=== PATIENT | female | born 1965 | race Caucasian/White ===

== ENCOUNTER → 2017-02-16 | Day surgery (SDC) | payer BC ==
--- NOTE | 2017-02-18 15:34 | PATH ---
Cytology Non-Gynecological Report Patient Name: VIK AHUMADA [facility]. Rec. #: [id number] /Age/Gender: 1965 (Age: 52) / F Account: [id number] Location: RADIOLOGY Taken: 02/16/2017 Received: 02/16/2017 Reported: 02/18/2017 Physicians: Wale Diaz M.D. Specimen(s) Received RIGHT THYROID FNA Clinical History Right thyroid nodule, 1 x 0.5 x 1.1 cm Final Diagnosis THYROID GLAND, RIGHT LOBE, US GUIDED FINE NEEDLE ASPIRATION BIOPSY: SATISFACTORY FOR EVALUATION. POSITIVE FOR MALIGNANT CELLS (BETHESDA CATEGORY ). FAVOR PAPILLARY THYROID CARCINOMA (SEE COMMENT). Comment: The smears and the cell block show clusters of enlarged epithelial cells with occasional nuclear grooves occasional nuclear pseudoinclusions, variable amount of cytoplasm with focal cytoplasmic vacuolization and granularity. Focal calcifications are seen. Scant colloid is present. Macrophages are present indicative of cystic change. These cytomorphologic findings favor papillary thyroid carcinoma. This result was communicated to Haleigh Ramirez, program assistant to Dr. Deras on 02/18/17. Electronically Signed Diego Sorensen M.D. Gross Description Received are four air dried smears, four smears in 95% alcohol, and 1 cc of bloody fluid in formalin. Four diff-quik stained slides, four Pap stained slides and one cell block are made.
== END | disposition home or self-care (01) ==
LOC: JRADIR 08:40
PROVIDERS: ATTEND Otolaryngology Facial Plastic Surgery
PROC: 0G9H3ZX Drainage of Right Thyroid Gland Lobe, Percutaneous Approach, Diagnostic (ICD-10-PCS; principal; 2017-02-16)
DX: C73 Malignant neoplasm of thyroid gland (principal)
CPT/HCPCS: 76942; 88173; 88305-TC

== ENCOUNTER 2019-06-02 16:16 | Emergency (ER) | payer BC ==
[2019-06-02 16:31] VITALS: BMI 23.1
[2019-06-02] MEDS ORDERED: ONDANSETRON 4 MG/2 ML VIAL IVPUSH ONE (16:45)
[2019-06-02] MEDS ORDERED: PANTOPRAZOLE SODIUM 40 MG VIAL IVPUSH ONE (17:07)
--- NOTE | 2019-06-02 17:07 | PDOC ---
History of Present Illness - General Chief Complaint: Coffee Ground Emesis Stated Complaint: Vomiting Blood Time Seen by Provider: 06/02/19 16:29 History Source: Patient, Old Records, Pt declined Sales Service Representative (Declined telephone interpeter. Prefered son to translate.) Exam Limitations: Language Barrier (Pt is Libyan speaking only.) - History of Present Illness Initial Comments: HPI: 54 y/o female with stage 4 gastric cancer presenting to [facility] ER complaining of multiple episodes of hematemesis. Pts son reports his mother stated she felt dizzy, then passed out for approx. 1 minute. After regaining consciousness, the pt then vomiting bright red blood with clots. An ambulance was called and the pt experienced several more episodes of hematemesis. At time of interview, the pt is complaining only of a little bit of pain around her J tube. No longer feels nauseated. Denies recent dark stools, bleeding from her gums, or hematuria. Pt was recently diagnosed with stage 4 gastric CA. Following at [place] for oncologic care. Last chemotherapy infusion on Tuesday of last week. PET scan performed two days later reportedly reassuring with shrinking tumors. PCP: Dr. Ted Borja ([phone]) Oncologist: Dr. Myranda Ortiz at [place] ([phone]) Medical Hx: - Stage 5 Gastric CA - Bipolar, Valproic Acid - Depression Surgical Hx: - J Tube Placement Review of Systems: In addition to that documented in the HPI above, the additional ROS was obtained : Constitutional- Denies fevers or chills Head- Denies vision changes ENMT- Denies sore throat CV- Denies chest pain Resp- Denies SOB GI- Endorses vomiting. Denies diarrhea - Denies painful urination or hematuria MSK- Denies recent trauma Skin- Denies new rashes Neuro- Denies new numbness or tingling or weakness Endocrine- Denies polyuria Heme- Denies bleeding or bruising Physical Examination: Vital signs and nursing notes reviewed. Constitutional- Adult female in no acute distress or obvious discomfort. Found semi-fowlers on hospital bed. Smiling. Head- Normocephalic. No obvious external signs of trauma. Conjunctiva pink and moist. Throat- Oral cavity and pharynx normal. No inflammation, swelling, exudate, or lesions. Trace amount of dried blood around lips. Oral mucosa pink and moist. Neck- Supple, trachea is midline. Cardiovascular / Chest- Regular rate and regular rhythm. No murmur, rubs, clicks , or gallops. Peripheral pulses- radial pulses full. No pretibial edema. Respiratory- Breathing unlabored. Speaking in complete sentences without pausing for breath. Equal chest rise and fall. Clear to auscultation bilaterally. No stridor, no wheezing, no rhonchi. Gastrointestinal- abdomen is soft, non-tender, non-distended. J tube in LUQ at 4.5cm. Site clean, dry, and well appearing. Neuro- Alert and oriented x4. Moving all four extremities spontaneously. Skin- [place], warm, dry, and intact. Psych- Affect- appropriate. Mood- normal. Speech was non-labored, non- pressured. MDM: 54 y/o female presenting with hematemesis and syncope in setting of stage 4 gastric cancer and active chemotherapy regimen. Afebrile. Vitals remarkable for tachycardia without hypotension. Physical exam as described above. Initial H/H within normal limits, however concern values have not equilibrated. Will trend at 4 hours. No significant thrombocytopenia or prolonged INR/PTT. Ordered Protonix bolus and drip, and Zofran. Pt requested Morphine as she is due for her scheduled oxycodone. Ordered 2mg Morphine. 02 Jun 2019 18:58 PM Telephone discussion with resident Dr. Jaret Contreras at [place]. Verbally appraised of the pts HPI, ED course, and current plan of management. 02 Jun 2019 18:42 PM [place] [facility] contacted. Facesheet and most recent laboratory results. Awaiting call back with further instructions. Pt remains persistently tachycardic. Now more pale appearing. Ordered 1 unit PRBC transfusion given description of volume loss. 02 Jun 2019 19:42 PM Telephone discussion with Dr. Powers, Adult ED Attending at [facility]. Verbally appraised of the pts HPI, ED course , and current plan of management. Will accept the pt for transfer for further evaluation by pt's oncologic team of record. Oncology fellow Dr. Contreras made aware of transfer center. [facility] will arrange ALS transport with [facility]. Paco Beasley M.D., PGY2 Emergency Medicine Resident Past History - Past Medical History Allergies/Adverse Reactions: Allergies Allergy/AdvReac Type Severity Reaction Status Date / Time No Known Allergies Allergy Verified 06/02/19 16:30 Home Medications: Ambulatory Orders NK [No Known Home Medication] 05/20/16 Cancer: Yes (STOMACH) COPD: No Psychiatric Problems: Yes (depression BIPOLAR) - Psycho Social/Smoking Cessation Hx Smoking History: Never smoked Have you smoked in the past 12 months: No Information on smoking cessation initiated: No Hx Alcohol Use: No Drug/Substance Use Hx: No *Physical Exam - Vital Signs Last Vital Signs Temp Pulse Resp BP Pulse Ox 98.5 F 113 H 20 107/86 100 06/02/19 16:25 06/02/19 16:25 06/02/19 16:25 06/02/19 16:25 06/02/19 16:25 ED Treatment Course - LABORATORY CBC & Chemistry Diagram: 06/02/19 17:03 06/02/19 17:03 - RADIOLOGY Radiology Studies Ordered: Category Date Time Status CHEST X-RAY PORTABLE* [RAD] Stat Radiology 06/02/19 16:37 Ordered Discharge - Discharge Information Problems reviewed: Yes Clinical Impression/Diagnosis: Hematemesis with nausea, Tachycardia Syncope Qualifiers: Syncope type: unspecified Qualified Code(s): R55 - Syncope and collapse Condition: Stable Disposition: TRANSFER ACUTE CARE/OTHER HOSP - Follow up/Referral - Patient Discharge Instructions - Post Discharge Activity - Transfer to Acute Care Facility Receiving Facility Name: [facility] Accepting Physician:: Dr. Powers, Adult ED Attending
[2019-06-02 17:11] LABS: BASO % 0.2 % (0-2.0); EOS % 0.3 % (0-4.5); HEMATOCRIT 34.8 % (32.4-45.2); LYMPH % 13.8 % (8-40); MCH 29.5 pg (25.7-33.7); MCHC 31.6 g/dl (32.0-36.0); MEAN CELL VOLUME 93.6 fl (80-96); MEAN PLT VOLUME 9.7 fl (7.5-11.1); MONO % 8.1 % (3.8-10.2); NEUT % 77.6 % (42.8-82.8); PLATELET COUNT 317 K/MM3 (134-434); RBC 3.72 M/mm3 (3.60-5.2); WHITE BLOOD COUNT 20.6 K/mm3 (4.0-10.0)
[2019-06-02] MEDS ORDERED: PANTOPRAZOLE SODIUM 80 MG in SODIUM CHLORIDE 100 ML IVPB SCH (17:15)
[2019-06-02 17:22] LABS: INR 1.15 (0.83-1.09); PROTHROMBIN TIME (PATIENT) 13.6 SEC (9.7-13.0)
[2019-06-02 17:25] LABS: ACTIVATED PTT 20.6 SECONDS (25.2-36.5)
[2019-06-02] MEDS ORDERED: ONDANSETRON 4 MG/2 ML VIAL ONE (17:27)
[2019-06-02] MEDS ORDERED: PANTOPRAZOLE SODIUM 40 MG VIAL ONE (17:27)
[2019-06-02] MEDS ORDERED: PANTOPRAZOLE SODIUM 40 MG/100 ML BAG IVPB ONE (17:27)
[2019-06-02 17:35] LABS: ALBUMIN 2.8 g/dl (3.4-5.0); BILIRUBIN,TOTAL 0.2 mg/dL (0.2-1); BLOOD UREA NITROGEN 19.6 mg/dL (7-18); CALCIUM 9.1 mg/dL (8.5-10.1); CREATININE 0.6 mg/dL (0.55-1.3); MAGNESIUM 2.2 mg/dL (1.8-2.4); PHOSPHOROUS 5.2 mg/dL (2.5-4.9); POTASSIUM 4.5 mmol/L (3.5-5.1); TOT PROT 7.9 g/dl (6.4-8.2)
[2019-06-02 17:50] LABS: ANISOCYTOSIS 3+; MACROCYTOSIS 1+; PLATELET ESTIMATE ADEQUATE
--- NOTE | 2019-06-02 17:50 | PDOC ---
Attending Attestation - Resident Resident Name: Paco Beasley - ED Attending Attestation I have performed the following: I have examined & evaluated the patient, The case was reviewed & discussed with the resident, I agree w/resident's findings & plan, Exceptions are as noted
[2019-06-02] MEDS ORDERED: morphine CARPU-JECT 4 MG/1 ML DISP.SYRIN IVPUSH ONE (17:56)
[2019-06-02] MEDS ORDERED: MORPHINE SULFATE 2 MG/ML VIAL ONE (18:07)
--- NOTE | 2019-06-02 18:30 | PDOC ---
Documentation entered by Odalys Barton SCRIBE, acting as scribe for Svetlana Phillips MD. Svetlana Phillips MD: This documentation has been prepared by the Mick flowers Xhesika, SCRIBE, under my direction and personally reviewed by me in its entirety. I confirm that the documentation accurately reflects all work, treatment, procedures, and medical decision making performed by me. Attending Attestation - Resident Resident Name: Paco Beasley - ED Attending Attestation I have performed the following: I have examined & evaluated the patient, The case was reviewed & discussed with the resident, I agree w/resident's findings & plan, Exceptions are as noted - HPI HPI: 06/02/19 18:15 The patient is a 54 year old female with a significant PMH of stage 4 gastric cancer (Dr. Myranda Ortiz at [place] ([phone])) who presents to the emergency department for multiple episodes of hematemesis. Son at bedside states the patient was complaining of dizziness, vomited and passed out for 1 minute. Son notes after the patient regained consciousness, she vomited bright red blood with clots again. Son notes the mother never experienced these symptoms before. Pt denies any complaints currently, but reports chronic lower abdominal pain. The patient denies chest pain, shortness of breath, headache. Denies fever, chills, cough, nausea, diarrhea and constipation. Denies dysuria, frequency, urgency and hematuria. Allergies: NKDA PCP: Dr. Ted Borja ([phone]) Oncologist: Dr. Myranda Ortiz at [place] ([phone]) - Physicial Exam PE: 06/02/19 18:16 Agree with resident exam - Critical Care Time Total Critical Care Time: 30 Critical Care Statement: The care of this patient involved high complexity decision making to prevent further life threatening deterioration of the patient 's condition and/or to evaluate & treat vital organ system(s) failure or risk of failure. - Medical Decision Making 06/02/19 18:22 54yo F hx gastric ca, actively on chemo presents to the ED with hematemesis For now, airway protected She is tachycardic to 113, blood pressure wnl but borderline low 2IVs placed, PPI and zofran given Concern for variceal bleed vs bleed from malignancy Plan to discuss with care team at [facility], low threshold to transfuse, and transfer 06/02/19 19:00 Hgb 11, but pt persistently tachycardic, now also more pale 1 unit PRBC ordered Pt accepted for transfer to the ED Heart Score/ECG Review #1 06/02/19 18:29 Twelve-lead EKG was performed and reviewed by me. Sinus tachycardia, rate 107. Normal axis and intervals. No ST elevations or T wave inversions.
[2019-06-02 21:13] VITALS: TEMP 99
[2019-06-03 03:42] VITALS: BP 124/88; PULSE 130
--- NOTE | 2019-06-03 18:37 | EKG ---
Test Reason : Blood Pressure : / mmHG Vent. Rate : 107 BPM Atrial Rate : 107 BPM P-R Int : 144 ms QRS Dur : 072 ms QT Int : 346 ms P-R-T Axes : 067 050 064 degrees QTc Int : 461 ms SINUS TACHYCARDIA OTHERWISE NORMAL ECG WHEN COMPARED WITH ECG OF 19-MAY-2016 23:42, T WAVE INVERSION NO LONGER EVIDENT IN INFERIOR LEADS Confirmed by BERTO MA MD ([id number]) on 06/03/2019 6:37:21 PM Referred By: Confirmed By:BERTO MA MD
== END 2019-06-02 21:36 | disposition short-term general hospital (02) ==
LOC: JER 16:16
PROC: 3E033GC Introduction of Other Therapeutic Substance into Peripheral Vein, Percutaneous Approach (ICD-10-PCS; principal; 2019-06-02)
PROC: 3E033GC Introduction of Other Therapeutic Substance into Peripheral Vein, Percutaneous Approach (ICD-10-PCS; 2019-06-02)
PROC: 3E033GC Introduction of Other Therapeutic Substance into Peripheral Vein, Percutaneous Approach (ICD-10-PCS; 2019-06-02)
PROC: 3E033NZ Introduction of Analgesics, Hypnotics, Sedatives into Peripheral Vein, Percutaneous Approach (ICD-10-PCS; 2019-06-02)
DX: K92.0 Hematemesis (principal); C16.9 Malignant neoplasm of stomach, unspecified; F31.9 Bipolar disorder, unspecified; Z93.4 Other artificial openings of gastrointestinal tract status
CPT/HCPCS: 36415; 36430; 36511; 71045-TC-FY; 80053; 83735; 84100; 84703; 85025; 85610; 85730; 86850; 86900; 86901; 86922; 93005; 93010; 99285-25; P9038; P9058